=== PATIENT | male | born 2000 | race Caucasian/White ===

== ENCOUNTER 2022-01-04 15:20 | Emergency (ER) | payer OTHER ==
[2022-01-04] MEDS ORDERED: Sodium Chloride 0.9% 0 ML ONE ×2 (15:39→16:35)
[2022-01-04] MEDS ORDERED: CEFAZOLIN 1 GM VIAL ONE (15:39)
[2022-01-04] MEDS ORDERED: Boostrix 0.5 ML (Tdap) VIAL ONE (15:39)
[2022-01-04 16:04] LABS: #Basophils 0.1 thou/uL (0.0-0.2); #Lymphocytes 2.3 thou/uL (1.20-3.40); #Monocytes 0.5 thou/uL (0.11-0.59); #Neutrophils 5.1 thou/uL (1.40-6.50); %Basophils 0.7 % (0.0-1.0); %Eosinophils 0.5 % (0.0-10.0); %Lymphocytes 28.6 % (21.0-51.0); %Monocytes 6.6 % (0.0-10.0); %Neutrophils 63.7 % (42.0-75.0); Hemoglobin 15.7 g/dL (14.0-18.0); Mean Corpuscular HGB CONC 33.2 g/dL (32.0-36.0); Mean Corpuscular Hemoglobin 29.2 pg (27.0-31.0); Mean Corpuscular Volume 87.8 fL (78.0-98.0); Mean Platelet Volume 8.7 fL (7.4-10.4); Platelet Count 195 thou/uL (130-400); RBC Distribution Width 11.7 % (11.5-14.5); Red Blood Cell (RBC) Count 5.39 mill/uL (4.70-6.10); White Blood Cell (WBC) Count 8.1 thou/uL (4.8-10.8)
[2022-01-04 16:08] LABS: Prothrombin Time 13.1 sec (12.0-14.7)
[2022-01-04 16:09] LABS: PTT 22.9 sec (22.9-36.1)
[2022-01-04 16:18] LABS: ALT (SGPT) 13 U/L (8-55); AST (SGOT) 20 U/L (5-34); Albumin 4.9 g/dL (3.5-5.0); Alkaline Phosphatase 103 U/L (40-110); Anion Gap 17 mmol/L (10-20); BUN (Urea Nitrogen) 14 mg/dL (8.9-20.6); Bilirubin, Total 1.6 mg/dL (0.2-1.2); CK (CPK) 152 U/L (30-200); Calc. Creatinine Clearance 0 mL/min (70-130); Calcium 9.9 mg/dL (7.8-10.44); Carbon Dioxide 24 mmol/L (22-29); Chloride 104 mmol/L (98-107); Estimated GFR 85; Globulin 2.8 g/dL (2.4-3.5); Glucose 108 mg/dL (70-105); Lipase 11 U/L (8-78); Potassium 4.1 mmol/L (3.5-5.1); Protein, Total 7.7 g/dL (6.0-8.3); Sodium 141 mmol/L (136-145)
[2022-01-04] MEDS ORDERED: Tranexamic Acid 1,000 MG/10 ML VIAL ONE ×3 (16:35→16:45)
[2022-01-04] MEDS ORDERED: Sodium Chloride 0.9% 100 ML ONE ×2 (16:37→16:52)
[2022-01-04] MEDS ORDERED: Sodium Chloride 0.9% 250 ML 250 ML ONE (16:44)
[2022-01-04] MEDS ORDERED: Ondansetron PF 4 MG/2 ML Vial ONE (17:08)
== END 2022-01-04 17:21 | disposition short-term general hospital (02) ==
LOC: MADERS 15:20
DX: S06.6X0A Traumatic subarachnoid hemorrhage without loss of consciousness, initial encounter (principal); F17.290 Nicotine dependence, other tobacco product, uncomplicated; V43.62XA Car passenger injured in collision with other type car in traffic accident, initial encounter; Y92.411 Interstate highway as the place of occurrence of the external cause; Z23 Encounter for immunization
CPT/HCPCS: 70450; 71045; 72125; 72170; 80053; 82550; 83690; 85025; 85610; 85730; 90471; 90715; 96365; 96375; 96376; G0390; J0690; J2405; J3490; J7050